=== PATIENT | male | born 1990 | race Caucasian/White ===

== ENCOUNTER 2019-08-15 09:36 | Emergency (ER) | payer MEDICARE, MEDICAID, SELFPAY ==
[2019-08-15 09:40] VITALS: BP 142/72; PULSE 73; RESP 14; TEMP 36.1; O2SAT 99
--- NOTE | 2019-08-15 09:51 | DI.RAD.S_ITS ---
PROCEDURE: XR FINGER LT MIN 2V INDICATIONS: injury TECHNIQUE: AP hand, 2 views of the 4th finger(s) acquired. COMPARISON: None. FINDINGS: Evaluation is limited, secondary to the patient's inability to fully cooperate with the examination. Bones: No fractures or dislocations. No suspicious bony lesions. Soft tissues: There is 4th finger soft tissue swelling. IMPRESSION: Soft tissue swelling is seen, without an acute abnormality seen by plain film. If there is point tenderness (or other clinical suspicion for a fracture not seen on these images) then a dedicated CT for a short-term followup plain film series could be considered for further evaluation, as clinically appropriate. Dictated by: Yunior Hidalgo M.D. on 08/15/2019 at 9:30 Approved by: Yunior Hidalgo M.D. on 08/15/2019 at 9:31
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
--- NOTE | 2019-08-15 10:54 | PC.NURSE ---
caren tape finger
== END 2019-08-15 10:56 | disposition home or self-care (01) ==
PROVIDERS: Emergency Provider Emergency Medicine
DX: S60.042A Contusion of left ring finger without damage to nail, initial encounter (principal); W22.8XXA Striking against or struck by other objects, initial encounter
CPT/HCPCS: 73140; 99282; 99283

== ENCOUNTER 2019-11-13 12:52 | Emergency (ER) | payer MEDICARE, MEDICAID, SELFPAY ==
[2019-11-13 13:04] VITALS: BP 125/57; PULSE 77; RESP 19; TEMP 36.2; O2SAT 97
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
[2019-11-13 14:23] LABS: Add Manual Diff / Slide Review NO; Basophils Absolute Auto 100 /uL (0-100); Basophils Percent Auto 0.9 % (0-2); Eosinophils Absolute Auto 300 /uL (0-450); Eosinophils Percent Auto 3.2 % (2-4); Hematocrit 39.6 % (41-53); Hemoglobin 13.6 g/dL (13.5-17.5); Lymphocytes Absolute Auto 2600 /uL (1100-4500); Lymphocytes Percent Auto 28.5 % (25-40); Mean Corpuscular HGB Conc 34.4 % (30-36); Mean Corpuscular Hemoglobin 30.2 PG (26-34); Mean Corpuscular Volume 87.8 fL (80-100); Monocytes Absolute Auto 1000 /uL (0-900); Monocytes Percent Auto 11.1 % (3-14); Neutrophils Absolute Auto 5000 /uL (1500-7000); Neutrophils Percent Auto 56.3 % (50-75); Platelet Count 298 X10^3/uL (150-400); Red Blood Cell Count 4.51 X10^6/uL (4.5-5.9); Red Cell Distribution Width 14.3 % (11.6-14.8)
--- NOTE | 2019-11-13 14:39 | PC.NURSE ---
patient caregiver states that patient has become more agitated since he moved from a house to an apartment, remains with same company/caregivers.
[2019-11-13 14:54] LABS: BUN Creatinine Ratio 14.4 (6-22); Blood Urea Nitrogen 13 mg/dL (9-20); Calcium 9.4 mg/dL (8.4-10.2); Carbon Dioxide 27 mmol/L (22-32); Chloride 103 mmol/L (98-107); Estimated Glomerular Filt Rate > 60.0 mL/min (>60); Glucose 95 mg/dL (70-100); HEMOLYSIS < 15 (0-50); Potassium 4.2 mmol/L (3.4-5.1); Sodium 140 mmol/L (137-145)
== END 2019-11-13 15:38 | disposition home or self-care (01) ==
PROVIDERS: Emergency Provider Emergency Medicine; PCP Physician Assistant Medical
DX: R45.1 Restlessness and agitation (principal); F84.0 Autistic disorder
CPT/HCPCS: 36415; 80048; 85025; 99283

== ENCOUNTER → 2022-05-01 12:08 | Outpatient (CLI) | payer MEDICARE, MEDICAID, SELFPAY ==
[2022-05-01 15:24] LABS: Add Manual Diff / Slide Review NO; Basophils Absolute Auto 100 /uL (0-100); Basophils Percent Auto 0.7 % (0-2); Eosinophils Absolute Auto 300 /uL (0-450); Eosinophils Percent Auto 2.8 % (2-4); Hematocrit 39.7 % (41-53); Hemoglobin 13.9 g/dL (13.5-17.5); Lymphocytes Absolute Auto 2400 /uL (1100-4500); Lymphocytes Percent Auto 26.4 % (25-40); Mean Corpuscular HGB Conc 34.9 % (30-36); Mean Corpuscular Hemoglobin 30.3 PG (26-34); Mean Corpuscular Volume 86.7 fL (80-100); Monocytes Absolute Auto 400 /uL (0-900); Neutrophils Absolute Auto 5800 /uL (1500-7000); Neutrophils Percent Auto 65.1 % (50-75); Platelet Count 297 X10^3/uL (150-400); Red Blood Cell Count 4.58 X10^6/uL (4.5-5.9); Red Cell Distribution Width 14.5 % (11.6-14.8); White Blood Cell Count 8.9 X10^3/uL (4.5-11.0)
[2022-05-01 16:54] LABS: Hemoglobin A1C% w Est Avg Glu 8.6 % (4.0-6.0)
[2022-05-01 17:11] LABS: Alanine Aminotransferase 56 IU/L (<50); Albumin Globulin Ratio 1.3 (1.0-2.8); Alkaline Phosphatase 67 U/L (38-126); Aspartate Aminotransferase 45 IU/L (17-59); BUN Creatinine Ratio 15.3 (6-22); Bilirubin Total 0.5 mg/dL (0.2-1.3); Blood Urea Nitrogen 11 mg/dL (9-20); Calcium 8.5 mg/dL (8.4-10.2); Carbon Dioxide 23 mmol/L (22-32); Chloride 102 mmol/L (98-107); Cholesterol 161 mg/dL (140-199); Estimated Glomerular Filt Rate > 60 mL/min (>60); Globulin 3.1 g/dL (1.7-4.1); Glucose 216 mg/dL (70-100); HDL Cholesterol 37 mg/dL (40-60); HEMOLYSIS < 15 (0-50); LDL Cholesterol Calculated 88 mg/dL (<100); Potassium 4.4 mmol/L (3.4-5.1); Sodium 137 mmol/L (137-145); Total Protein 7.1 g/dL (6.3-8.2); Triglycerides 180 mg/dL (35-150)
== END ==
PROVIDERS: PCP Family Medicine; Referring Provider Family Medicine; Visit Provider Family Medicine
DX: R73.03 Prediabetes (principal); E66.01 Morbid (severe) obesity due to excess calories
CPT/HCPCS: 36415; 80053; 80061; 83036; 85025

== ENCOUNTER → 2023-04-21 07:18 | Outpatient (CLI) | payer MEDICARE, MEDICAID, SELFPAY ==
[2023-04-21 10:07] LABS: Add Manual Diff / Slide Review NO; Basophils Absolute Auto 0 /uL (0-100); Basophils Percent Auto 0.6 % (0-2); Eosinophils Absolute Auto 200 /uL (0-450); Eosinophils Percent Auto 2.2 % (2-4); Hematocrit 39.6 % (41-53); Hemoglobin 13.7 g/dL (13.5-17.5); Lymphocytes Absolute Auto 1900 /uL (1100-4500); Lymphocytes Percent Auto 21.3 % (25-40); Mean Corpuscular HGB Conc 34.6 % (30-36); Mean Corpuscular Hemoglobin 29.4 PG (26-34); Mean Corpuscular Volume 84.9 fL (80-100); Monocytes Absolute Auto 700 /uL (0-900); Monocytes Percent Auto 7.5 % (3-14); Neutrophils Absolute Auto 6100 /uL (1500-7000); Neutrophils Percent Auto 68.4 % (50-75); Platelet Count 288 X10^3/uL (150-400); Red Blood Cell Count 4.67 X10^6/uL (4.5-5.9); Red Cell Distribution Width 14.2 % (11.6-14.8); White Blood Cell Count 8.9 X10^3/uL (4.5-11.0)
[2023-04-21 10:15] LABS: Alanine Aminotransferase 36 IU/L (<50); Albumin 3.9 g/dL (3.5-5.0); Albumin Globulin Ratio 1.1 (1.0-2.8); Alkaline Phosphatase 76 U/L (38-126); Aspartate Aminotransferase 25 IU/L (17-59); BUN Creatinine Ratio 14.7 (6-22); Bilirubin Total 0.5 mg/dL (0.2-1.3); Blood Urea Nitrogen 11 mg/dL (9-20); Calcium 8.7 mg/dL (8.4-10.2); Carbon Dioxide 26 mmol/L (22-32); Chloride 99 mmol/L (98-107); Cholesterol 184 mg/dL (140-199); Estimated Glomerular Filt Rate > 60 mL/min (>60); Globulin 3.4 g/dL (1.7-4.1); Glucose 348 mg/dL (70-100); HDL Cholesterol 36 mg/dL (40-60); HEMOLYSIS < 15 (0-50); LDL Cholesterol Calculated 105 mg/dL (<100); Potassium 4.2 mmol/L (3.4-5.1); Sodium 134 mmol/L (137-145); Total Protein 7.3 g/dL (6.3-8.2); Triglycerides 216 mg/dL (35-150)
[2023-04-22 08:10] LABS: x Labcorp Estim. Avg Glu (eAG) 186 mg/dL (.); x Labcorp Hemoglobin A1c 8.1 % (4.8-5.6)
== END ==
PROVIDERS: PCP Family Medicine; Referring Provider Family Medicine; Visit Provider Family Medicine
DX: E11.9 Type 2 diabetes mellitus without complications (principal); F50.89 Other specified eating disorder
CPT/HCPCS: 36415; 80053; 80061; 83036; 85025

== ENCOUNTER → 2023-08-10 11:37 | Outpatient (CLI) | payer MEDICARE, MEDICAID, SELFPAY ==
[2023-08-10 13:22] LABS: Hemoglobin A1C% w Est Avg Glu 7.3 % (4.0-6.0)
[2023-08-10 13:33] LABS: BUN Creatinine Ratio 15.2 (6-22); Blood Urea Nitrogen 12 mg/dL (9-20); Calcium 9.3 mg/dL (8.4-10.2); Carbon Dioxide 23 mmol/L (22-32); Chloride 103 mmol/L (98-107); Estimated Glomerular Filt Rate > 60 mL/min (>60); Glucose 233 mg/dL (70-100); HEMOLYSIS < 15 (0-50); Sodium 137 mmol/L (137-145)
== END ==
PROVIDERS: PCP Family Medicine; Referring Provider Family Medicine; Visit Provider Family Medicine
DX: E11.9 Type 2 diabetes mellitus without complications (principal)
CPT/HCPCS: 36415; 80048; 83036

== ENCOUNTER 2024-07-19 16:57 | Emergency (ER) | payer MEDICARE, MEDICAID, SELFPAY ==
[2024-07-19 17:01] VITALS: BP 145/82; PULSE 100; RESP 20; TEMP 37.1; O2SAT 95
--- NOTE | 2024-07-19 19:36 | ED.GENADULT ---
HPI - General Adult General Chief complaint: Dental/Oral Stated complaint: tooth pain, nothing working Time Seen by Provider: 07/19/24 19:29 Source: patient and other Mode of arrival: Ambulatory History of Present Illness HPI narrative: Patient is a 33-year-old male. Is autistic is here with his credit report checker for evaluation of continued discomfort and what appears to be his right upper teeth. Patient has had symptoms for a couple days. According to the credit report checker he was prescribed antibiotics by his dentist but was not specifically evaluated by the dentist. They are supposed to return after the antibiotics. He was completed the course of antibiotics yesterday. Helpdesk Manager reports that he was still expressing in his way discomfort in his right upper jaw. The patient was unable to provide any HPI given his autism. There has been no vomiting. They have tried Tylenol and ibuprofen without improvement. No apparent problems with breathing or swallowing. Related Data Home Medications Medication Instructions Recorded Confirmed acetaminophen 325 mg tablet 650 mg PO BID 11/13/19 06/20/24 calcium carbonate (Tums) 400 mg PO QID 06/18/20 06/20/24 isopropyl alcohol 95 % in glycerin otic (ear) 06/18/20 06/20/24 5 % ear drops Previous Rx's Medication Instructions Recorded cetirizine 10 mg tablet See Rx Instructions .Route 08/16/23 .COMPLEX #90 tabs betamethasone valerate 0.1 % 1 applic topical BID PRN 09/10/23 topical cream reoccurring rash #45 grams cholecalciferol (vitamin D3) 25 25 mcg PO DAILY #90 caps 12/01/23 mcg (1,000 unit) capsule epinephrine 0.3 mg/0.3 mL See Rx Instructions .Route 12/28/23 injection, auto-injector .COMPLEX #2 syringes quetiapine 400 mg tablet 400 mg PO BID #56 tabs 02/15/24 clonazepam 1 mg tablet See Rx Instructions .Route 04/25/24 .COMPLEX #120 tabs semaglutide 14 mg tablet (Rybelsus) 14 mg PO DAILY #90 tabs 04/25/24 citalopram 40 mg tablet See Rx Instructions .Route 05/16/24 .COMPLEX #90 tabs metformin 1,000 mg tablet 1,000 mg PO BID #180 tabs 06/28/24 propranolol 40 mg tablet 40 mg PO TID #270 tabs 07/03/24 trazodone 100 mg tablet 100 mg PO BID #180 tabs 07/03/24 clindamycin HCl 300 mg capsule 300 mg PO Q6H 7 days #28 caps 07/19/24 tramadol 50 mg tablet 50 mg PO TID PRN pain #14 tabs 07/19/24 Allergies Allergy/AdvReac Type Severity Reaction Status Date / Time shellfish derived Allergy Mild Verified 06/20/24 10:50 Review of Systems Review of Systems Narrative: See HPI, provided by credit report checker Patient History Medical History Tachycardia Insomnia disorder with non-sleep disorder mental comorbidity Type 2 diabetes mellitus without complication Compulsive overeating Tinea corporis Severely aggressive behavior Cognitive developmental delay Morbid obesity due to excess calories Autism Social History Smoking Status: Never smoker Smoking Status: Never smoker Substance Use Type: does not use Exam Initial Vital Signs Initial Vital Signs: Vital Signs Temperature 98.7 F 07/19/24 17:01 Pulse Rate 100 H 07/19/24 17:01 Respiratory Rate 20 07/19/24 17:01 Blood Pressure 145/82 H 07/19/24 17:01 Pulse Oximetry 95 07/19/24 17:01 Oxygen Delivery Method Room Air 07/19/24 17:01 HENMT Ears: TM's normal bilaterally Mouth: oral mucosae normal, lip normal and tongue normal HENMT Other: Normal dentition. No abscess noted. Skin General: no rashes or lesions noted Neuro General: patient alert and patient awake Course Orders Ordered: Discontinued Medications Clindamycin HCl (Clindamycin 150 Mg Capsule) 300 mg PO NOW ONE Stop: 07/19/24 19:36 Last Admin: 07/19/24 19:43 Dose: 300 mg Documented By: RICK Tramadol HCl (Tramadol 50 Mg Tablet) 50 mg PO NOW ONE Stop: 07/19/24 19:36 Last Admin: 07/19/24 19:44 Dose: 50 mg Documented By: RICK Vital Signs Vital signs: Vital Signs - 8 hr 07/19/24 17:01 Temperature 98.7 F Pulse Rate 100 H Respiratory Rate 20 Blood Pressure 145/82 H Pulse Oximetry 95 Oxygen Delivery Method Room Air Medical Decision Making [facility] Narrative Medical decision making narrative: Patient was unable to provide any HPI or review of systems. The history was provided by the credit report checker. No overt abscess was noted on the exam today. He does seem to have discomfort in his right upper jaw region. He was completed a course of antibiotics. No other specific source of infection was found. I did advise the credit report checker that it is important that he follows up with a dentist as he may need further evaluation to include imaging studies. Plan will be is to provide tramadol for breakthrough pain. Will put him on a 2nd course of antibiotics. First dose given here in the ER. Caretakers return precautions. She expressed understanding and agreement. Discharge Plan Departure Patient Disposition: Home Clinical Impression: Pain, dental Instructions: DI for Dental Pain Activity Restrictions/Additional Instructions: Recommend that you take the antibiotics as directed. The pain medications as needed. It was important that he follows up with a dentist. Return to the emergency department for new symptoms. Prescriptions: New tramadol 50 mg tablet 50 mg PO TID PRN (Reason: pain) Qty: 14 0RF clindamycin HCl 300 mg capsule 300 mg PO Q6H 7 Days Qty: 28 0RF No Action cetirizine 10 mg tablet See Rx Instructions .ROUTE .COMPLEX Qty: 90 3RF Dose Instruction: TAKE 1 TABLET BY MOUTH ONCE DAILY FOR ALLERGIES Rx Instructions: TAKE 1 TABLET BY MOUTH ONCE DAILY FOR ALLERGIES betamethasone valerate 0.1 % cream 1 applic topical BID PRN (Reason: reoccurring rash) Qty: 45 11RF cholecalciferol (vitamin D3) 25 mcg (1,000 unit) capsule 25 mcg PO DAILY Qty: 90 3RF epinephrine 0.3 mg/0.3 mL auto-injector See Rx Instructions .ROUTE .COMPLEX Qty: 2 0RF Dose Instruction: INJECT 0.3 MLS INTRAMUSCULARLY NEEDED FOR ALLERGIC REACTION Rx Instructions: INJECT 0.3 MLS INTRAMUSCULARLY NEEDED FOR ALLERGIC REACTION quetiapine 400 mg tablet 400 mg PO BID Qty: 56 11RF Rybelsus 14 mg tablet 14 mg PO DAILY Qty: 90 3RF clonazepam 1 mg tablet See Rx Instructions .ROUTE .COMPLEX Qty: 120 5RF Rx Instructions: Take 1 tablet by mouth 3 times a day for agitation and aggression and 1 additional for PRN for agitation and aggression citalopram 40 mg tablet See Rx Instructions .ROUTE .COMPLEX Qty: 90 3RF Dose Instruction: TAKE 1 TABLET (40MG) BY MOUTH ONCE DAILY. Rx Instructions: TAKE 1 TABLET (40MG) BY MOUTH ONCE DAILY. metformin 1,000 mg tablet 1,000 mg PO BID Qty: 180 1RF calcium carbonate [Tums] 200 mg calcium (500 mg) tablet,chewable 400 mg PO QID isopropyl alcohol in glycerin 95-5 % drops otic (ear) propranolol 40 mg tablet 40 mg PO TID Qty: 270 3RF trazodone 100 mg tablet 100 mg PO BID Qty: 180 3RF acetaminophen 325 mg Tablet 650 mg PO BID Referrals: Jose Morrison DO [Primary Care Provider] - Stand Alone Forms: Patient Portal/API
[2024-07-19] MEDS: CLINDAMYCIN 150 MG CAPSULE 300 MG PO (19:43)
[2024-07-19] MEDS: TRAMADOL 50 MG TABLET PO (19:44)
== END 2024-07-19 19:52 | disposition home or self-care (01) ==
PROVIDERS: Emergency Provider Emergency Medicine; PCP Family Medicine
DX: K08.89 Other specified disorders of teeth and supporting structures (principal)
CPT/HCPCS: 99283

== ENCOUNTER → 2024-11-02 11:41 | Outpatient (CLI) | payer MEDICARE, MEDICAID, SELFPAY ==
[2024-11-02 13:30] LABS: TSH w/ Reflex to FT4 2.01 uIU/mL (0.47-4.68)
== END ==
LOC: LAB 11:43
PROVIDERS: PCP Family Medicine; Referring Provider Student in an Organized Health Care Education/Training Program; Visit Provider Student in an Organized Health Care Education/Training Program
DX: F41.9 Anxiety disorder, unspecified (principal)
CPT/HCPCS: 36415; 84443